=== PATIENT | male | born 1950 | race Caucasian/White ===

== ENCOUNTER 2017-07-16 06:28 | Day surgery (SDC) | payer OTHER ==
[2017-07-10 10:49] VITALS: BMI 28.5
[2017-07-16] MEDS ORDERED: THROMBIN (BOVINE) 5,000 UNIT VIAL TP ONE ×2 (06:55→09:51)
[2017-07-16] MEDS ORDERED: BUPIVACAINE HCL/PF 2.5 MG/ML - 30 ML VIAL IJ ONE (06:55)
[2017-07-16] MEDS ORDERED: methylPREDNISolone ACET (DEPO) 40 MG/1 ML VIAL ONE (06:55)
[2017-07-16] MEDS ORDERED: LIDOCAINE 1%/EPI 1:100000 (20 ML MULTI DOSE VIAL) ONE (06:55)
[2017-07-16] MEDS ORDERED: oxyCODONE HCL 10 MG SUSTAINED ACTING TABLET PO ONE (07:23)
--- NOTE | 2017-07-16 07:39 | HP ---
History & Physical Update - History History: No Change - Physical Physical: No Change - Assessment Assessment: No Change - Plan Plan: No Change
[2017-07-16] MEDS ORDERED: MIDAZOLAM HCL 2 MG/2 ML SINGLE DOSE VIAL ONE (08:00)
[2017-07-16] MEDS ORDERED: PROPOFOL 20 ML ONE ×2 (08:17)
[2017-07-16] MEDS ORDERED: SUCCINYLCHOLINE CHLORIDE 200 MG/10 ML VIAL ONE (08:17)
[2017-07-16] MEDS ORDERED: ONDANSETRON 4 MG/2 ML VIAL ONE (08:44)
[2017-07-16] MEDS ORDERED: DEXAMETHASONE SOD PHOSPHATE 4 MG/1 ML VIAL ONE (08:44)
[2017-07-16] MEDS ORDERED: ceFAZolin SODIUM 1 GM VIAL ONE (08:44)
[2017-07-16] MEDS ORDERED: LIDOCAINE 1%/EPI 1:100000 (50 ML MULTI DOSE VIAL) INF ONE (09:08)
[2017-07-16] MEDS ORDERED: methylPREDNISolone ACET (DEPO) 40 MG/1 ML VIAL IM ONE (09:51)
[2017-07-16] MEDS ORDERED: BUPIVACAINE HCL/PF 0.25% (2.5MG/ML) 10 ML VIAL IJ ONE (09:52)
[2017-07-16] MEDS ORDERED: GELATIN SPONGE,ABSORBABLE 1 GM PACKET TP ONE (09:52)
[2017-07-16] MEDS ORDERED: oxyCODONE HCL 5 MG TABLET PO PRN (10:21)
[2017-07-16] MEDS ORDERED: ONDANSETRON 4 MG/2 ML VIAL IVPUSH PRN (10:21)
[2017-07-16] MEDS ORDERED: LACTATED RINGERS SOLUTION 1,000 ML IV SCH (10:30)
--- NOTE | 2017-07-16 10:36 | OP ---
Operative Note - Note: Operative Date: 07/16/17 Pre-Operative Diagnosis: spinal stenosis Operation: L3-L4 laminectomy Surgeon: Rick Carr Cryolite Recovery Operator: Sarah Cui Anesthesiologist/HEALTH INFORMATION PROVIDER: Tran Julio Anesthesia: Spinal Estimated Blood Loss (mls): 20 Fluid Volume Replaced (mls): 800 Operative Report Dictated: Yes
--- NOTE | 2017-07-16 10:37 | SURG ---
Surgery Clay Stain Mixer Note Clay Stain Mixer: Sarah Cui PA-C Date of Service: 07/16/17 Diagnosis: spinal stenosis Procedure: L3-L4 laminectomy I was present for the entirety of the operative procedure. For further detail, please refer to operative report. Visit type - Case Type Case Type: Scheduled Admission - Emergency Emergency Visit: No - New patient This patient is new to me today: Yes Date on this admission: 07/16/17 - Critical Care Critical Care patient: No
[2017-07-16 11:51] VITALS: TEMP 98.4
[2017-07-16 12:27] VITALS: PULSE 85
[2017-07-16 13:54] VITALS: BP 126/74
--- NOTE | 2017-07-17 09:14 | OP ---
DATE OF OPERATION: 07/16/2017 PREOPERATIVE DIAGNOSIS: Spinal stenosis, L3-4. POSTOPERATIVE DIAGNOSIS: Spinal stenosis, L3-4. PROCEDURE PERFORMED: Laminectomy, L3-4. SURGEON: Rick Carr MD GELATIN POWDER MIXER: CALIN Barajas ESTIMATED BLOOD LOSS: 50 mL INTRAVENOUS FLUIDS: Per Anesthesia. ANESTHESIA: Spinal. COMPLICATIONS: There were none. DISPOSITION: Patient was brought to the PACU in stable condition. INDICATION FOR SURGERY: The patient is a 66-year-old gentleman who has been suffering from pain from his back down his legs. X-rays and MRI were completed which noted that he had spinal stenosis at L3-4. He had gone through an exhaustive course of treatment for this which included medications, physical therapy, as well as injections. Unfortunately, his pain continued to persist despite all this. At this point, risks, benefits, and alternatives were discussed, and the patient consented to surgery. DESCRIPTION OF OPERATION: Patient was brought to the operating room by the anesthesia staff. After appropriate patient identification was performed, spinal anesthesia was given. The patient was placed prone onto the OR table. He was able to position himself to avoid all bony prominences. Two needles were placed in his back to amalia off the L3-4 segment, and x-ray was taken to confirm this as correct. The needles were removed, and 10 mL of lidocaine with epinephrine was injected into his back at this time. His back was prepped and draped in a sterile manner. At this point, timeout was completed. An incision was made from the top of L3 down to the bottom of L4. Dissection was carried down to the fascia. Fascia was split open at this time, and appropriate retractors were then placed in. A spinal needle was placed onto the L3 lamina to amalia off the L3-L4 level. An x-ray was taken to confirm this as correct. The needle was removed, and the microscope was brought in. At this point, the interspinous ligament at L3-4 was removed. A portion of the L3 and L4 lamina was removed. The flavum was identified, was removed. A complete decompression was performed such that by the end of the procedure, the L4 nerve root appeared to be well decompressed. All bleeding was well controlled at this time. Steroid was placed over the nerve root. FloSeal was placed over that. The fascia was closed with a No. 1 Vicryl suture. The subcutaneous tissues were closed with 2-0 Vicryl suture. Skin was closed with 3-0 Monocryl suture. Dermabond was applied. Steri-Strips were applied. A sterile dressing was applied. Patient was placed supine on the OR bed and brought to the PACU in stable condition. Augusto [id number]
== END 2017-07-16 12:55 | disposition home or self-care (01) ==
LOC: FASU 06:28
PROVIDERS: ATTEND Orthopaedic Surgery Orthopaedic Surgery of the Spine
PROC: 01NB0ZZ Release Lumbar Nerve, Open Approach (ICD-10-PCS; principal; 2017-07-16 09:01)
DX: M48.06 Spinal stenosis, lumbar region (principal)
CPT/HCPCS: 94010; 94760